=== PATIENT | female | born 1985 ===

== ENCOUNTER 2023-08-25 08:31 | Outpatient (RCR) | payer OTHER, SELFPAY ==
[2023-08-25 08:56] VITALS: BP 118/62
[2023-08-25] MEDS: INJECTAFER 265 MG IV (09:09)
[2023-08-25 10:00] VITALS: BP 105/56
== END 2023-09-17 23:59 | disposition home or self-care (01) ==
LOC: OID 08:31
PROVIDERS: ATTENDING PHYSICIAN Physician Assistant Medical; FAMILY PHYSICIAN Family Medicine
DX: D50.9 Iron deficiency anemia, unspecified (principal); Z98.84 Bariatric surgery status; S06.0X0A Concussion without loss of consciousness, initial encounter; S12.9XXA Fracture of neck, unspecified, initial encounter; W01.0XXA Fall on same level from slipping, tripping and stumbling without subsequent striking against object, initial encounter; R42 Dizziness and giddiness; R11.0 Nausea
CPT/HCPCS: 96365; J1439

== ENCOUNTER → 2025-03-08 18:36 | Outpatient (REF) | payer OTHER, SELFPAY | LOC: RAD 18:36 | PROVIDERS: ATTENDING PHYSICIAN Physician Assistant Medical; FAMILY PHYSICIAN Family Medicine | DX: M54.2 Cervicalgia (principal); Z87.81 Personal history of (healed) traumatic fracture | CPT/HCPCS: 72050 ==

== ENCOUNTER → 2025-04-04 08:09 | Outpatient (REF) | payer OTHER, SELFPAY | LOC: WDC 08:09 | PROVIDERS: ATTENDING PHYSICIAN Physician Assistant Medical | DX: R92.8 Other abnormal and inconclusive findings on diagnostic imaging of breast (principal) | CPT/HCPCS: 76642 ==

== ENCOUNTER 2025-05-31 08:56 | Outpatient (RCR) | payer OTHER, SELFPAY ==
[2025-05-31 09:25] VITALS: BP 127/71
[2025-05-31] MEDS: VENOFER 110 MG IV (09:40)
[2025-05-31 11:10] VITALS: BP 116/52
== END 2025-06-16 13:35 | disposition home or self-care (01) ==
LOC: OID 08:56
PROVIDERS: ATTENDING PHYSICIAN Physician Assistant Medical
DX: D50.9 Iron deficiency anemia, unspecified (principal)
CPT/HCPCS: 96365; J1756